=== PATIENT | female | born 1960 | race Caucasian/White ===

== ENCOUNTER 2018-10-24 17:38 | Emergency (ER) | payer MEDICAID ==
[~2018-10-24] VITALS: Ht 162.6 cm; Wt 72.6 kg
[2018-10-24 17:40] VITALS: BP_SYST 130
--- NOTE | 2018-10-24 17:40 | NUR ---
Patient triaged and placed in waiting room. VSS and patient appears in no acute distress at this time. Accompanied by FAMILY, awaiting available bed, and MD notified of need for MSE.
--- NOTE | 2018-10-24 18:06 | NUR ---
BEING EVALUATED BY CLINT RIVAS IN TRIAGE ROOM.
[2018-10-24 18:13] VITALS: BP_SYST 124
--- NOTE | 2018-10-24 18:13 | NUR ---
Patient given written and verbal discharge instructions and verbalizes understanding. ER MD discussed with patient the results and treatment provided. Patient in stable condition. ID arm band removed. Rx of VALACYCLOVIR, MOTRIN, NORCO given. Patient educated on pain management and to follow up with PMD. Pain Scale 0/10. Opportunity for questions provided and answered. Medication side effect fact sheet provided.
== END 2018-10-24 18:13 | disposition home or self-care (01) ==
LOC: SED 17:38
DX: B02.9 Zoster without complications (principal); R03.0 Elevated blood-pressure reading, without diagnosis of hypertension
CPT/HCPCS: 99283